=== PATIENT | female | born 1980 | race Caucasian/White ===

== ENCOUNTER 2016-12-23 15:05 | Observation (INO) | payer OTHER ==
[~2016-12-23] VITALS: Ht 172.7 cm; Wt 88.6 kg
[2016-12-23] VITALS (9 sets, daily range): BP systolic 108–134; BP diastolic 66–90; PULSE 80–133; RESP 12–20; O2SAT 94–100
[~2016-12-23 15:05] MED LIST: HYDR1TAB91 PO; MTC5T PO; NORE1TAB60 PO; fentaNYL-PF 50 mCg/mL 2 mL Inj ONE
[2016-12-23] MEDS ORDERED: HYDR25TA4 PO (15:21)
--- NOTE | 2016-12-23 15:33 | ED.REPORT ---
HPI-Abd Pain F Under 40 Date of Service Dec 23, 2016 ED Provider: Marek Lin MD The patient is an otherwise healthy 36 year old female who presents to the ED due to increasingly severe abdominal pain for the past two days. Pain radiates from her back into the front. Associated symptoms include back pain, decreased urination and nausea. She denies fever, dysuria. She has had urinary infections before. She has never had kidney stones before. Her father has a hx of kidney stones. Her PCP is [place]. She is not allergic to any medications. Nursing Notes Stated Complaint: RIGHT SIDE PAIN Chief Complaint: Female Abdominal Pain Nursing Notes Reviewed: Yes Allergies: Coded Allergies: clindamycin (Verified Allergy, Mild, 12/23/16) ulcers in mouth Scheduled PRN Hydrochlorothiazide (Hydrochlorothiazide) 25 Mg Tablet 25 MG PO DAILY PRN PRN exercise General Time Seen by MD: 15:33 Chief Complaint Abdominal pain Hx Obtained From: Patient Arrived By: Walk-in Onset Occurred: 2 days ago Symptom Duration: Since onset Progression since Onset: Gradually worsening Location: : Back Quality: Painful Radiation: : Abdomen lower: Abdomen upper Severity: Current: Moderate Recent Healthcare: No recent doctor visit, No recent hospitalization Similar Sx Previous: No Past Medical History Past Medical History denies Past Surgical History Reports: , Hysterectomy Smoking History Unknown if Ever Smoker Social History Other Social History: Ambulatory Status Independent Review of Systems Constitutional: Denies: Fever GI: Reports: Abdominal pain, Nausea Female: Reports: Flank pain, Urination decreased, Denies: Dysuria Musculoskeletal: Reports: Back pain Complete sys rev & neg: except as marked. Physical Exam Physical Exam Notes: Initial Vital Signs Vital Signs (First) Date Time Temp Pulse Resp B/P Pulse Ox O2 Delivery O2 Flow Rate FiO2 12/23/16 15:18 37.0 115 20 134/90 100 Room Air Initial VS: Reviewed Head / Eyes: Atraumatic, Normocephalic, PERRL Extremities: Vascular intact, Neuro intact, No swelling, No tenderness Skin: Warm, Dry, No cyanosis Psychiatric: Mood/affect normal, Behavior normal, Normal thought content General/Constitutional: Awake, Alert, Cooperative Respiratory / Chest: Atraumatic, Breath sounds NL, Breath sounds = bilat, No respiratory distress Cardiovascular: Heart rate NL, Regular rhythm, Heart sounds NL, No gallop, No murmurs, No rubs Abdomen: No guarding, No rebound light right sided abdominal tenderness Back: Full range of motion right CVA tenderness Interpretation & Diagnostics Lab Results Interpretation Result Diagram: 12/23/16 1530 12/23/16 1530 Test 12/23/16 15:30 12/23/16 16:00 12/23/16 16:40 White Blood Count 12.4th/mm3 (3.8-10.1) Red Blood Count 4.90mil/mm3 (3.90-5.20) Hemoglobin 14.9g/dL (12.0-15.6) Hematocrit 42.9% (35.0-46.0) Mean Corpuscular Volume 87.6fL (81-100) Mean Corpuscular Hemoglobin 30.4pg (27.0-35.0) Mean Corpuscular Hemoglobin Concent 34.7% (32.0-37.0) Red Cell Distribution Width 12.9% (12.3-15.4) Platelet Count 281bil/L (150-400) Neutrophils (%) (Auto) 78.2% (40-74) Lymphocytes (%) (Auto) 13.4% (14-46) Monocytes (%) (Auto) 7.2% (4-12) Eosinophils (%) (Auto) 0.8% (0-5) Basophils (%) (Auto) 0.2% (0-3) Sodium Level 136mEq/L (134-144) Potassium Level 3.0mEq/L (3.5-5.2) Chloride Level 96mEq/L (97-108) Carbon Dioxide Level 23mmol/L (18-29) Blood Urea Nitrogen 11mg/dL (6-20) Creatinine 0.63mg/dL (0.57-1.00) Estimat Glomerular Filtration Rate 155mL/min (>59) Glucose Level 113mg/dL (60-99) Calcium Level 9.8mg/dL (8.5-10.1) Total Bilirubin 0.3mg/dL (0.0-1.2) Aspartate Amino Transf (AST/SGOT) 17U/L (0-50) Alanine Aminotransferase (ALT/SGPT) 17U/L (0-32) Alkaline Phosphatase 49U/L (25-150) Total Protein 7.4g/dL (6.4-8.4) Albumin 4.6g/dL (3.4-5.0) Urine Color Yellow (YELLOW) Urine Appearance Slightly cloudy Urine pH 6.0 (5.0-8.0) Urine Specific Henriette 1.030 (1.003-1.035) Urine Protein 100mg/dL (NEG,TRACE) Urine Glucose (UA) Negativemg/dL (NEGATIVE) Urine Ketones Negativemg/dL (NEGATIVE) Urine Occult Blood Large (NEGATIVE) Urine Nitrite Negative (NEGATIVE) Urine Bilirubin Negative (NEGATIVE) Urine Urobilinogen Normalmg/dL (NORMAL) Urine Leukocyte Esterase Moderate (NEGATIVE) Urine RBC 3-10/hpf (0-2) Urine WBC 0-5/hpf (0-5) Urine Epithelial Cells None/hpf (NONE-MOD) Urine Crystals None seen (NONE SEEN) Urine Bacteria Few/hpf (NONE-FEW) Urine Hyaline Casts None/lpf (NONE) Urine Granular Casts None seen (NONE SEEN) Urine Waxy Casts None seen (NONE SEEN) Urine Red Blood Cell Casts None seen (NONE SEEN) Urine White Blood Cell Casts None seen (NONE SEEN) Urine Mucus None seen (None Seen) Urine Trichomonas None seen (NONE SEEN) Urine Yeast None (NONE SEEN) Urinalysis Comment None Urine Culture Reflexed Indicated Lactic Acid Level 1.0mmol/L (0.4-2.0) Lab Results Interpretation: urine dip neg CT Abd / Pelvis Interpretation IMPRESSION: 1. No renal stone or hydronephrosis. 2. Base to the appendix is enlarged 1 cm with small associated appendicolith suspicious for early manifestation of acute appendicitis. Please correlate with clinical findings. Dictated by: Jenny Leigh MD, PhD on 12/23/2016 at 17:41 Approved by: Jenny Leigh MD, PhD on 12/23/2016 at 17:46 Study type: Abdominal CT no contrast Interpretation / Wet Read by: Interpret - Radiologist Re-Eval/Medical Decision Re-Evaluation/Progress #1: Time of Eval: 17:14 Patient Status: Mild relief Re-Evaluation/Progress Note: Pt rechecked. She is still in pain. Plan for CT scan and oral potassium. Pt understands and agrees with plan. Re-Evaluation/Progress #2: Time of Eval: 18:31 Patient Status: Condition unchanged Re-Evaluation/Progress Note: Pt rechecked. CT scan does not show kidney stones but there is a possibiltiy for appendicitis. Plan to call a surgeon and have him come look at pt in the ED. Consultation : Referral / Consult Name: Pedro Cifuentes MD Consulted With: Surgeon Call Returned at: 19:29 Warehouse Director: Agrees with eval, Agrees with plan Note: Case discussed. Dr. Cifuentes accepts admission. Counseled Regarding: Diagnosis, Lab results, Need for admission Discharge & Departure Primary Impression: Appendicitis Appendicitis type: unspecified Qualified Code: K37 - Unspecified appendicitis Disposition: ADMITTED TO HOSPITAL Discharge Condition All VS Reviewed: Yes Condition: Stable Referrals: Ramo Tran MD (PCP) Scribe Attestation Portion of this note were transcribed by Mireya Nunez. I, Dr. Lin, personally performed the history, physical exam, and medical decision-making: I reviewed and confirmed the accuracy for the information in the transcribed note. Signed by: meme Chu, 12/23/16 1700 copies to: Ramo Tran MD, Donald L MD Dec 23, 2016 15:33 Mireya Nunez Dec 23, 2016 16:13
[2016-12-23] MEDS ORDERED: 0.9% Sodium Chloride 1,000 ML IV ONE (15:37)
[2016-12-23] MEDS ORDERED: Ketorolac 15 mg/mL Inj IV ONE (15:40)
[2016-12-23 15:51] LABS: BASOPHILS % (AUTO) 0.2 % (0-3); EOSINOPHILS % (AUTO) 0.8 % (0-5); MONOCYTES % (AUTO) 7.2 % (4-12); Mean Corpuscular Hemoglobin 30.4 pg (27.0-35.0); Mean Corpuscular Volume 87.6 fL (81-100); NEUTROPHILS % (AUTO) 78.2 % (40-74); Platelet Count 281 bil/L (150-400)
[2016-12-23] MEDS: Ondansetron 2 mg/mL 2 mL Inj IV PRN ×2 (15:57→18:13)
[2016-12-23] MEDS: HYDROmorphone 1 mg/mL Inj IVPUSH PRN ×2 (16:20→18:13)
[2016-12-23 16:23] LABS: APPEARANCE,URINE SLIGHTLY CLOUDY (CLEAR,HAZY); COLOR,URINE YELLOW (YELLOW); OCCULT BLOOD,URINE LARGE (NEGATIVE); UROBILINOGEN,URINE NORMAL (NORMAL)
[2016-12-23] MEDS ORDERED: Potassium Chloride 20 mEq/15 mL 15mL Oral Soln PO ONE (17:15)
--- NOTE | 2016-12-23 17:48 | DRSVH ---
PROCEDURE: CT KUB (PNL-7475) INDICATIONS: r flank pain and hematuria TECHNIQUE: Noncontrast 5 mm thick sections acquired from the diaphragms to the symphysis. 5 mm thick coronal an d sagittal reformats were then performed. For radiation dose reduction, the following was used: aut omated exposure control, adjustment of mA and/or kV according to patient size. COMPARISON: [facility] , CT, ABD/PELVIS W/CON (PNL), 08/24/2011, 13:58. [facility], CT, KUB - CT (ABD/PEL W/O CONT), 12/27/2010, 21:38. FINDINGS: Image quality: Excellent. Lung bases: Lung bases are clear. Heart size is normal. Urinary system: Both kidneys are normal in size. No kidney stones. No hydronephrosis or perinephri c fat stranding. Both ureters appear non-dilated throughout their expected courses. Bladder wall th ickness is normal; no calcified bladder stones. Other solid organs: Liver and spleen are normal in size. Gallbladder is within normal limits.. Barragan creas is normal in contours. No adrenal nodules. Peritoneum and bowel: Unenhanced bowel loops demonstrate normal wall thickness and caliber. No free fluid or air. Appendicolith is noted in the base of the appendix. Base of the appendix is enlarged measuring 1 cm in diameter. Minimal stranding noted adjacent to the base of the appendix. Nodes and vessels: No retroperitoneal or mesenteric adenopathy by size criteria. Aorta and inferior vena cava are normal in caliber. Abdominal wall: No ventral hernias. Pelvis: No free pelvic fluid. No inguinal hernias or adenopathy. Bones: No suspicious bony lesions. No vertebral body compression fractures. IMPRESSION: 1. No renal stone or hydronephrosis. 2. Base to the appendix is enlarged 1 cm with small associated appendicolith suspicious for early ma nifestation of acute appendicitis. Please correlate with clinical findings. Dictated by: Jenny Leigh MD, PhD on 12/23/2016 at 17:41 Approved by: Jenny Leigh MD, PhD on 12/23/2016 at 17:46
--- NOTE | 2016-12-23 19:45 | HP ---
[address] [address] HISTORY AND PHYSICAL PATIENT: ANA RODRIGUEZ : 1980 MR#: [id number] ADMIT: 12/23/2016 JOB ID: [id number] DATE OF SERVICE: 12/23/2016 CHIEF COMPLAINT/INDICATION: A 36-year-old female with probable appendicitis. HISTORY OF PRESENT ILLNESS: The patient developed progressive onset of right-sided abdominal pain since yesterday, worsening today such that she came to the emergency room where a CT KUB has demonstrated findings consistent with appendicitis. PAST MEDICAL HISTORY: Hysterectomy for uterine scarring and lower abdominal pain. MEDICATIONS: None. 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 SOCIAL HISTORY: , [id number] mom. Has six kids ranging from the age of 20 down to 2, the last few were adopted. Negative for tobacco, negative daily alcohol. FAMILY HISTORY: Noncontributory. REVIEW OF SYSTEMS: Negative. PHYSICAL EXAMINATION: VITAL SIGNS: Afebrile. Vital signs stable. GENERAL: She appears comfortable, though her pulse was as high as 115. HEENT: Her sclerae are clear. NECK: Supple. LUNGS: Clear. HEART: Heart sounds are regular. BREASTS: Not examined. ABDOMEN: She has mild right lower quadrant tenderness, scars consistent with surgical history. LABORATORY DATA: White count is 12.4, hematocrit 42.9. Chemistries are normal except for mildly low potassium of 3, glucose of 113. There is no lipase checked. Her urinalysis demonstrated large occult blood. CT KUB was obtained and I have reviewed the report and the films and I concur that she has an appendicolith, a 1 cm appendix, and some fat stranding around the base of the appendix. IMPRESSION/PLAN: Appendicitis. I have recommended laparoscopic appendectomy after discussion of risks, benefits, and possible complications, including possibility of negative exploration or needing to make a larger incision due to her previous surgery. She agrees to proceed. I will give her cefotetan in the perioperative period. We will move ahead tonight. She last ate at roughly 8:30 this morning.
[2016-12-23] MEDS ORDERED: Cefotetan Inj 2,000 MG in IV Premix 1 EACH IV ONE (20:00)
[2016-12-23] MEDS ORDERED: Lactated Ringer's 1,000 ML IV ONE (20:40)
[2016-12-23] MEDS ORDERED: Lactated Ringer's 500 ML IV PRN (20:51)
[2016-12-23] MEDS ORDERED: Lactated Ringer's 1,000 ML IV SCH ×2 (20:51→21:15)
[2016-12-23] MEDS ORDERED: Atropine 0.4 mg/mL Inj IVPUSH PRN (20:55)
[2016-12-23] MEDS ORDERED: hydrALAZINE 20 mg/mL Inj IVPUSH PRN (20:55)
[2016-12-23] MEDS ORDERED: fentaNYL-PF 50 mCg/mL 2 mL Inj IVPUSH PRN (20:55)
[2016-12-23] MEDS ORDERED: Phenylephrine 10,000 mCg/mL Inj IVPUSH PRN (20:55)
[2016-12-23] MEDS ORDERED: Ondansetron 2 mg/mL 2 mL Inj IVPUSH PRN ×2 (20:55→21:15)
[2016-12-23] MEDS ORDERED: Labetalol 5 mg/mL 4 mL Inj IV PRN (20:55)
[2016-12-23] MEDS ORDERED: HYDROmorphone 1 mg/mL Inj IVPUSH PRN (20:55)
[2016-12-23] MEDS ORDERED: MetoCLOpramide 5 mg/mL 2 mL Inj IVPUSH PRN (20:55)
[2016-12-23] MEDS ORDERED: EPHEDrine Sulfate 50 mg/mL Inj IVPUSH PRN (20:55)
[2016-12-23] MEDS ORDERED: Bupivacaine-MPF 0.5% W/EPI 30 mL Inj INFILTRATE ONE (20:56)
[2016-12-23] MEDS ORDERED: Polyethylene Glycol (PEG) 17 Gm Powder PO ONE (21:15)
[2016-12-23] MEDS ORDERED: diphenhydrAMINE 25 mg Capsule PO PRN (21:15)
[2016-12-23] MEDS: HYDROmorphone 0.5 mg/0.5 mL iSecure Syringe IV PRN ×2 (21:24→21:33)
--- NOTE | 2016-12-23 21:24 | NUR ---
Report given to Chloe Velasquez RN, room 1006.
--- NOTE | 2016-12-23 21:25 | PCM.ANEP1 ---
Post Anesthesia Phase 1 PACU Phase 1 Assessment Vital Signs Vital Signs Date Time Temp Pulse Resp B/P Pulse Ox O2 Delivery O2 Flow Rate FiO2 12/23/16 21:15 133 17 130/81 100 Simple Mask 8 12/23/16 21:10 36.7 127/78 12/23/16 18:12 90 18 128/86 100 Room Air 12/23/16 15:18 37.0 115 20 134/90 100 Room Air Anesthetic Administered: GA Level of Alertness: Awake, talking ESTEBAN's with Equal Strength: Yes Pain: No Pain Scale Score: 5 Nausea or Vomiting: No Oxygen Delivery: Room Air Lungs: Clear to Auscultation, Normal Air Movement Dermatome Level: Full Sensation Zack Lynch MD Dec 23, 2016 21:25
--- NOTE | 2016-12-23 21:25 | PCM.HPANE ---
Patient Data Surgeon Admitting Provider: Attending Provider: Primary Care Physician:Ramo Tran MD Other Provider: Reason for Visit Right Side Pain Ht/WT & BMI Height (Feet): 5 Height (Inches): 8 Weight (Kilograms): 88.64 Body Mass Index Allergies Coded Allergies: clindamycin (Verified Allergy, Mild, 12/23/16) ulcers in mouth Past Anesthesia History Anesthesia History: Denies:: Abnormal Airway, Anesthesia Reactions, Difficult Intubation Diabetes History Hx Diabetes?: No MRSA MRSA: No Medications Reported Medications Hydrochlorothiazide 25 Mg [id number] Mg PO DAILY PRN exercise Ref 0 12/23/16 Discontinued Reported Medications Noreth A-Et Estra/Fe Fumarate (Microgestin Fe 1.5 Tab)1 Tab Tablet1 Tab PO BID 05/02/11 Metoclopramide-Expunged Drug, Do Not Renew! (Reglan-Expunged Drug, Do Not Renew! )5 Mg Tablet5 Mg PO Q4 PRN 1-2 tablets every 4 hours as needed for nausea/vomiting 03/04/11 Hydrocod/APAP-Expunged, Do Not Renew! 1 Each Tablet1 Tab PO PRN 03/03/11 History History of ENT Problems?: No HEENT History: Denies:: Abnormal Airway Cataracts Difficult Intubation Dysphagia Hearing Problem Sinus Problem TMJ Hx of Heart Problems?: No Cardiovascular History: Denies:: Cardiac Surgery Chest Pain Congestive Heart Failure Edema Heart Murmur Hypertension Irregular Heartbeat Pacemaker Thrombophlebitis Hx of Respiratory Problem?: No Respiratory History: Denies:: Asthma COPD Chest Surgery Dyspnea Emphysema Hemoptysis Pneumonia Tuberculosis Hx Neurologic Problems?: Yes Neurological History: Positive for:: Headaches (Has one now. Hx Migraines.) Denies:: Alzheimer's Disease CVA Dementia Dizziness Parkinson's Disease Seizures Hx of GI Problems?: Yes Gastrointestinal History: Positive for:: Gastrointestinal Bleeding Denies:: Diverticulitis Gastroesphageal Reflux Heartburn Hepatitis Hiatal Hernia Rectal Bleeding Hx of Problems?: No Genitourinary History: Positive for:: Urinary Tract Infection Denies:: Kidney Stones Female Hx: Positive for:: Endometriosis Denies:: Currently Pelvic Inflammatory Problems with Breasts? Skin History: Denies:: History Skin Disorders? Pressure Ulcers Hx Musculoskeletal Problems?: Yes Musculoskeletal History: Denies:: Back Injury Joint Replacement Musculoskeletal Trauma Hx of Psycho/Social Problems?: No Psycho Social History: Denies:: Anxiety Bipolar Disorder Hx Depression Suicide Attempt Hx Surgeries?: Yes (Hysterectomy, x1) Hx Any Other Health Problems?: No Other History: Positive for:: Hospitalization Denies:: Cancer Endocrine Disease Thyroid Disease History Blood Transfusions: Denies:: Blood Transfusions Hx Diabetes: No Hx Alcohol Use: NoHx Substance Use: No Smoking Status: Unknown if Ever Smoker Have You Smoked inLast 12 mo: No Stop/Bang Risk Assessment Category Category 1A: Patient has history of documented sleep apnea, and HAS NOT received any narcotic, sedative or anesthesia administration during this stay. Category 1B: Patient has history of documented sleep apnea, and HAS received any narcotic , sedative or anesthesia administration during this stay Category 2: Patient has SUSPECTED Obstructive Sleep Apnea, and HAS received any narcotic , sedative or anesthesia administration during this stay. Category 3: Patient has SUSPECTED Obstructive Sleep Apnea and HAS NOT received narcotic, sedative or anesthesia administration during this stay. Category 4: Outpatient in Procedural Areas with known sleep apnea or who screen positive for High Risk via the STOP/BANG questionnaire. Exam Exam Vital Signs Vital Signs Date Time Temp Pulse Resp B/P Pulse Ox O2 Delivery O2 Flow Rate FiO2 12/23/16 18:12 90 18 128/86 100 Room Air 12/23/16 15:18 37.0 115 20 134/90 100 Room Air General Appearance: Alert, Oriented X3, Cooperative, Moderate Distress (right abdominal pain) HEENT/AIRWAY: MP 2 Lungs: Clear to Auscultation, Normal Air Movement Heart: Exam Unremarkable, Regular Rate/Rhythm, No Murmurs/Rubs/Gallops Meds/Labs/Diagnostics Admission Meds Current Medications Sodium Chloride (Normal Saline) 1,000 ml @ 0 mls/hr Q0M ONCE IV Last administered on 12/23/16 15:57; Start 12/23/16 at 15:37; Stop 12/23/16 at 15:38 ; Status DC Potassium Chloride (Potassium Chloride Oral Soln) 40 meq NOW ONCE PO Last administered on 12/23/16 17:26; Start 12/23/16 at 17:15; Stop 12/23/16 at 17:16 ; Status DC Labs Test 12/23/16 15:30 12/23/16 16:00 12/23/16 16:40 White Blood Count 12.4th/mm3 (3.8-10.1) Red Blood Count 4.90mil/mm3 (3.90-5.20) Hemoglobin 14.9g/dL (12.0-15.6) Hematocrit 42.9% (35.0-46.0) Mean Corpuscular Volume 87.6fL (81-100) Mean Corpuscular Hemoglobin 30.4pg (27.0-35.0) Mean Corpuscular Hemoglobin Concent 34.7% (32.0-37.0) Red Cell Distribution Width 12.9% (12.3-15.4) Platelet Count 281bil/L (150-400) Neutrophils (%) (Auto) 78.2% (40-74) Lymphocytes (%) (Auto) 13.4% (14-46) Monocytes (%) (Auto) 7.2% (4-12) Eosinophils (%) (Auto) 0.8% (0-5) Basophils (%) (Auto) 0.2% (0-3) Sodium Level 136mEq/L (134-144) Potassium Level 3.0mEq/L (3.5-5.2) Chloride Level 96mEq/L (97-108) Carbon Dioxide Level 23mmol/L (18-29) Blood Urea Nitrogen 11mg/dL (6-20) Creatinine 0.63mg/dL (0.57-1.00) Estimat Glomerular Filtration Rate 155mL/min (>59) Glucose Level 113mg/dL (60-99) Calcium Level 9.8mg/dL (8.5-10.1) Total Bilirubin 0.3mg/dL (0.0-1.2) Aspartate Amino Transf (AST/SGOT) 17U/L (0-50) Alanine Aminotransferase (ALT/SGPT) 17U/L (0-32) Alkaline Phosphatase 49U/L (25-150) Total Protein 7.4g/dL (6.4-8.4) Albumin 4.6g/dL (3.4-5.0) Urine Color Yellow (YELLOW) Urine Appearance Slightly cloudy Urine pH 6.0 (5.0-8.0) Urine Specific Milo 1.030 (1.003-1.035) Urine Protein 100mg/dL (NEG,TRACE) Urine Glucose (UA) Negativemg/dL (NEGATIVE) Urine Ketones Negativemg/dL (NEGATIVE) Urine Occult Blood Large (NEGATIVE) Urine Nitrite Negative (NEGATIVE) Urine Bilirubin Negative (NEGATIVE) Urine Urobilinogen Normalmg/dL (NORMAL) Urine Leukocyte Esterase Moderate (NEGATIVE) Urine RBC 3-10/hpf (0-2) Urine WBC 0-5/hpf (0-5) Urine Epithelial Cells None/hpf (NONE-MOD) Urine Crystals None seen (NONE SEEN) Urine Bacteria Few/hpf (NONE-FEW) Urine Hyaline Casts None/lpf (NONE) Urine Granular Casts None seen (NONE SEEN) Urine Waxy Casts None seen (NONE SEEN) Urine Red Blood Cell Casts None seen (NONE SEEN) Urine White Blood Cell Casts None seen (NONE SEEN) Urine Mucus None seen (None Seen) Urine Trichomonas None seen (NONE SEEN) Urine Yeast None (NONE SEEN) Urinalysis Comment None Urine Culture Reflexed Indicated Lactic Acid Level 1.0mmol/L (0.4-2.0) Plan Impression Patient chart reviewed, patient interviewed and anesthestic plan with risks, benefits, and alternatives discussed, and informed consent obtained. NPO Status: > 8 hrs ASA Physical Status: ASA2 Plus Emergency Anesthetic Plan: GA Bene/Risks/Altern/Consents: Yes HP Complete Prior to Induction: Yes Zack Lynch MD Dec 23, 2016 19:59
--- NOTE | 2016-12-23 21:25 | PCM.ANEP2 ---
Post Anesthesia Evaluation ASA/CMS Post Anesthesia VS in Patient's Normal Range?: Yes Resp Stable; Airway Patent?: Yes CV Function & Hydration Stable: Yes Mental Status Recovered?: Yes Pain control Satisfactory?: Yes N/V Control Satisfactory?: Yes Zack Lynch MD Dec 23, 2016 21:25
--- NOTE | 2016-12-23 22:15 | NUR ---
Arrival on unit Pt arrive at [facility] at 2200. Oriented to room and call light, significant other in room. PRN given for pain and zofran for nausea prevention. Pt alert and oriented x3, able to make needs known. Lap sites CDI. Care continues
--- NOTE | 2016-12-24 00:37 | OP ---
[address] [address] OPERATIVE REPORT PATIENT: ANA RODRIGUEZ : 1980 MR#: [id number] ADMIT: 12/23/2016 JOB ID: [id number] DATE OF SURGERY: 12/23/2016 PREOPERATIVE DIAGNOSIS(ES): Appendicitis. POSTOPERATIVE DIAGNOSIS(ES): Appendicitis. PROCEDURE: Laparoscopic appendectomy. SURGEON: Pedro Cifuentes MD INDICATIONS: A 36-year-old female with signs and symptoms consistent with appendicitis. FINDINGS: Acute nonperforated appendicitis. DESCRIPTION OF PROCEDURE: The patient was brought to the operating room. General anesthetic was administered. SCOAP protocol was followed. She received perioperative cefotetan. Surgical time-out was performed. We began with a Veress needle by the umbilicus. The abdomen was insufflated. We placed an optical trocar and then two additional trocars. The patient was tilted head-down and to the left. There was no free fluid in the abdomen. We exposed the appendix that was thickened with serosal injection, with a very hard appendicolith in the proximal 3rd causing obstruction. We mobilized the appendix, thinned out the mesoappendix with cautery and then used a single firing of the 45 stapler to divide the appendix at its base along with the mesoappendix. Specimen was removed in a bag to avoid wound contamination. We inspected the staple line. Hemostasis was good. We suctioned out the small amount of bleeding that had occurred and irrigated appropriately. We suctioned out all of our irrigation, checked the staple line again for hemostasis and adequacy and then took a quick survey of the abdomen, seeing no other significant inflammation. We removed all ports, let our CO2 out, and closed the wounds with absorbable suture. The patient tolerated the procedure well. At the time of dictation, she is in the recovery room.
[2016-12-24 01:55] VITALS: BP 105/58; PULSE 84; RESP 20; O2SAT 95
[2016-12-24 06:15] VITALS: BP 97/58; PULSE 58; RESP 16; O2SAT 98
[2016-12-24 08:15] VITALS: PULSE 64; RESP 15; O2SAT 98
[2016-12-24 09:10] VITALS: BP 105/64; PULSE 68; RESP 16; O2SAT 99
[2016-12-24] MEDS ORDERED: OXYC5TAB72 PO (09:14)
--- NOTE | 2016-12-24 09:15 | PCM.DISURG ---
Surgical Discharge Instruction Date of Service Dec 24, 2016 Dates of Hospitalization Date of Hospital Admission Dec 23, 2016 at 20:12 Providers Admitting Physician: Pedro Cifunetes MD Primary Care Physician: Ramo Tran MD Attending Physician: Pedro Cifuentes MD Diet Discharge Diet: No restrictions Activity Discharge Activity-General: No restrictions Dressing and Incisional Care Dressing Care: Allow Steri Stripes to fall off, Remove outer dressing after 24 hrs Hygiene: May shower Follow Up Plan Follow Up Plan 2-3 weeks with [facility] General Surgery clinic for pathology review and wound check Pedro Cifuentes MD Dec 24, 2016 09:15
--- NOTE | 2016-12-24 10:07 | NUR ---
Social Work- Brief Note/Readiness for Discharge Data: EMR Reviewed. Pt is a 36 year old female admitted 12/23/16 for appy per H&P. Pt's insurance is [employer]. Pt's PCP is Ramo Tran MD. SW spoke with pt regarding discharge plan, SW role explained. Pt alert and oriented x3. Pt resides in [place] with her and children where she remains independent with her ADLs. Pt uses no DME and drives. Pt has no DPOA, encouraged pt to complete this and bring it to the hospital. SW left phone number and plan on the board. Pt to discharge home with to transport via POV. No anticipated discharge needs. SW will continue to follow. Assessment: Pt who is independent at base. Plan: Pt to discharge home with to transport via POV. No anticipated discharge needs. SW will continue to follow. MARIA ELENA Benitez
--- NOTE | 2016-12-24 10:39 | NUR ---
Discharge To home with at 10:35 via private vehicle. IV discontinued intact. Pt and express understanding of all discharge instructions and care notes. Steady ambulation to door, declines wheelchair. All belongings sent with pt.
--- NOTE | 2016-12-24 10:51 | NUR ---
Social Work- Discharge Data: EMR Reviewed. Pt is a 36 year old female admitted 12/23/16 for appy per H&P. Pt to discharge today. Pt is independent at base. Per RN, pt is ambulating in room. Pt to discharge home with to transport via POV. No discharge needs. Assessment: Pt who is independent at base. Plan: Pt to discharge home with to transport via POV. No discharge needs. MARIA ELENA Benitez
--- NOTE | 2016-12-24 16:02 | PROG NOTE ---
[address] [address] PROGRESS NOTE PATIENT: ANA RODRIGUEZ : 1980 MR#: [id number] ADMIT: 12/23/2016 JOB ID: [id number] DATE: 12/24/2016 Postop day one laparoscopic appendectomy. She is afebrile, taking p.o. well, her incisions are in good shape. I did not recheck her labs. She will go home today.
--- NOTE | 2016-12-24 19:00 | DIS ---
[address] [address] DISCHARGE SUMMARY PATIENT: ANA RODRIGUEZ : 1980 MR#: [id number] ADMIT: 12/23/2016 JOB ID: [id number] DIS: 12/24/2016 DISCHARGE DIAGNOSIS: Appendicitis. OPERATIONS AND PROCEDURES: Laparoscopic appendectomy. HOSPITAL COURSE: A 36-year-old female admitted with appendicitis. She underwent surgery and did well, was discharged on postop day number one. She went home with oxycodone 5 mg p.o. q.4 h. p.r.n. #10 and will follow up in 2-3 weeks with the [facility].
--- NOTE | 2016-12-27 11:01 | PATH ---
SURGICAL PATHOLOGY Attending Physician:Pedro Cifuentes MD CASE STATUS: Signed Out PATIENT NAME: ANA RODRIGUEZ PID: [id number] : 1980 DATE COLLECTED:12/23/2016 00:00 SPECIMEN: Appendix CLINICAL HISTORY: 1). APPENDIX FINAL DIAGNOSIS: 1.APPENDIX: ACUTE APPENDICITIS. ICD10 CODE K35.80 GROSS DESCRIPTION: The specimen is received in one formalin filled container labeled with the patient's name, sublabeled "appendix" is one cylindrical argueta appendix measuring 5.5 x 1.3 x 1.3 CM. The serosal surface is light ybarra-argueta, smooth and glistening. There is a large amount of attached fatty tissue. Sectioning reveals the wall to be thickened to 0.3-0.4 CM. The lumen contains a light grover slightly friable material. Rn Interventional sections are submitted in one cassette. 12/25/2016 DAC MICRO DESCRIPTION: See diagnosis. ICD-9 CODES: CPT CODES: 1: 27504 Electronically Signed Out Marek Davis MD [facility] Pathology [facility] [address], [place] [address] Technical component performed at [facility], [address] [place] [address] Ave[address], [place], [address]
== END 2016-12-24 10:38 | disposition home or self-care (01) ==
LOC: SED 15:05 → OSC 20:09
PROVIDERS: ADMIT Surgery; ATTEND Surgery
DX: K35.80 Unspecified acute appendicitis (principal); Z90.710 Acquired absence of both cervix and uterus
CPT/HCPCS: 36415; 44970; 74176; 80053; 81000; 81025; 83605; 85025; 87086; 94640; 96361; 96374; 96375; 96376; 99285; G0378; J1170; J2175; J2405; J3010; J7030; J7120

== ENCOUNTER 2017-01-01 18:33 | Emergency (ER) | payer OTHER ==
[~2017-01-01] VITALS: Ht 172.7 cm; Wt 89.1 kg
[~2017-01-01 18:33] MED LIST changes: -HYDR1TAB91 PO; +HYDR25TA4 PO; -MTC5T PO; -NORE1TAB60 PO; +OXYC5TAB72 PO; -fentaNYL-PF 50 mCg/mL 2 mL Inj ONE
[2017-01-01 18:35] VITALS: BP 120/85; PULSE 94; RESP 20; O2SAT 98
[2017-01-01 19:21] LABS: BASOPHILS % (AUTO) 0.4 % (0-3); EOSINOPHILS % (AUTO) 1.4 % (0-5); MONOCYTES % (AUTO) 7.6 % (4-12); Mean Corpuscular Hemoglobin 30.3 pg (27.0-35.0); Mean Corpuscular Volume 87.6 fL (81-100); NEUTROPHILS % (AUTO) 65.2 % (40-74); Platelet Count 300 bil/L (150-400)
[2017-01-01 19:46] LABS: Magnesium 2.1 mg/dL (1.6-2.6)
--- NOTE | 2017-01-01 19:58 | ED.REPORT ---
HPI-General Illness Date of Service Jan 01, 2017 ED Provider: Marline Victor MD A 36 year old female one week post laparoscopic appendectomy presents to ED from complaining of RUQ pain/right lower lung pain that feels like it is located right under her ribs. does not feel like the current pain is related to the incisions from that surgery. She reports that she cannot take a full breathe in or breathe out due to pain. She denies any stomach pain, diarrhea, or swelling in feet and ankles. Normal bowel movements and has begun to resume normal activities such as walking. She reports adverse reactions to pain medications, reporting that Oxycontin causes nausea. Nursing Notes Stated Complaint: RIGHT SIDE CHEST PAIN, DIFFICULTY BREATHING Chief Complaint: Female Abdominal Pain Nursing Notes Reviewed: Yes Allergies: Coded Allergies: clindamycin (Verified Allergy, Mild, 12/23/16) ulcers in mouth morphine (Verified Adverse Reaction, Unknown, Rash,Itching,, 01/01/17) Scheduled PRN Hydrochlorothiazide (Hydrochlorothiazide) 25 Mg Tablet 25 MG PO DAILY PRN PRN exercise oxyCODONE (oxyCODONE) 5 Mg Tablet 5 MG PO Q4H PRN PRN For Moderate Pain General Time Seen by MD: 19:41 Chief Complaint Other (RUQ pain) Hx Obtained From: Patient, Spouse Arrived By: Walk-in Sudden in Onset?: No Onset Occurred: Onset unknown Symptom Duration: Since onset Location: : Abdomen (RUQ) Severity: Current: Moderate Severity: Maximum: Severe Recent Healthcare: Recent doctor visit Similar Sx Previous: No Past Medical History Past Medical History gastrointestinal bleed. endometriosis. 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 Chronic lower extremity edema Past Surgical History Reports: Appendectomy, , Hysterectomy Smoking History Unknown if Ever Smoker Social History Other Social History: Ambulatory Status Independent Review of Systems RUQ pain that seems to be right under ribs. Difficulty taking full breathes. Denies stomach pain. Full Review of Systems GI: Denies: Diarrhea Musculoskeletal: Denies: Extremity swelling (denies swelling in feet or ankles. ) Complete sys rev & neg: except as marked. Physical Exam Vital Signs Vital Signs Date Time Temp Pulse Resp B/P Pulse Ox O2 Delivery O2 Flow Rate FiO2 01/01/17 23:31 36.7 68 16 110/64 97 Room Air 01/01/17 18:35 36.4 94 20 120/85 98 Room Air Initial VS: Reviewed General/Constitutional: Awake, Alert Head / Eyes: Atraumatic, Normocephalic, PERRL, EOMI ENT: Atraumatic, Mucous membranes moist Neck: Atraumatic, No swelling Respiratory / Chest: Atraumatic, Breath sounds NL, Breath sounds = bilat, No respiratory distress Cardiovascular: Heart rate NL, Regular rhythm, Heart sounds NL, No gallop, No murmurs, No rubs Abdomen: No guarding, No rebound RUQ pain without rebound or guarding. Good bowel tones. Incision from laproscopic appendectomy is healing nicely. Back: Atraumatic Upper Extremities Upper Extremity / MS: No swelling, No edema Lower Extremity / Pelvis / MS: No swelling, No edema Ankle / Foot: No swelling, No edema Skin: Atraumatic, Warm, Dry Neurologic: Oriented X3, Speech NL Interpretation & Diagnostics Lab Results Interpretation Result Diagram: 01/01/17191001/01/171910 Test 01/01/17 19:11 White Blood Count 7.9th/mm3 (3.8-10.1) Red Blood Count 4.66mil/mm3 (3.90-5.20) Hemoglobin 14.1g/dL (12.0-15.6) Hematocrit 40.8% (35.0-46.0) Mean Corpuscular Volume 87.6fL (81-100) Mean Corpuscular Hemoglobin 30.3pg (27.0-35.0) Mean Corpuscular Hemoglobin Concent 34.6% (32.0-37.0) Red Cell Distribution Width 12.7% (12.3-15.4) Platelet Count 300bil/L (150-400) Neutrophils (%) (Auto) 65.2% (40-74) Lymphocytes (%) (Auto) 25.3% (14-46) Monocytes (%) (Auto) 7.6% (4-12) Eosinophils (%) (Auto) 1.4% (0-5) Basophils (%) (Auto) 0.4% (0-3) Sodium Level 137mEq/L (134-144) Potassium Level 3.2mEq/L (3.5-5.2) Chloride Level 101mEq/L (97-108) Carbon Dioxide Level 18mmol/L (18-29) Blood Urea Nitrogen 7mg/dL (6-20) Creatinine 0.52mg/dL (0.57-1.00) Estimat Glomerular Filtration Rate 193mL/min (>59) Glucose Level 103mg/dL (60-99) Calcium Level 9.6mg/dL (8.5-10.1) Magnesium Level 2.1mg/dL (1.6-2.6) Total Bilirubin 0.2mg/dL (0.0-1.2) Aspartate Amino Transf (AST/SGOT) 15U/L (0-50) Alanine Aminotransferase (ALT/SGPT) 12U/L (0-32) Alkaline Phosphatase 45U/L (25-150) Total Protein 7.2g/dL (6.4-8.4) Albumin 4.0g/dL (3.4-5.0) Lipase 29U/L (13-60) Hold Conklin Top Tube Received (Received) ECG Interpretation ECG Interpretation: Rate is 79. Sinus rhythm. Time: 19:23 Interpreted by: ED physician X-Ray Chest Interpretation Chest Xray Interpretation: IMPRESSION: No acute pulmonary process. Dictated by: Unique Saba M.D. on 01/01/2017 at 20:38 Approved by: Unique Saba M.D. on 01/01/2017 at 20:39 Interpretation / Wet Read by: Interpret - Radiologist Re-Eval/Medical Decision Time of Eval: 22:26 Patient Status: Condition improved (Toradol was quite helpful with controlling pain) Re-Evaluation/Progress Note: Rechecked patient, explained test results, diagnosis, and plan for discharge. Patient understands and agrees with the plan. Counseled Regarding: Diagnosis, Lab results, Need for follow-up, When/why to return to ED Discharge & Departure Primary Impression: Pleuritic chest pain Disposition: Home Discharge Condition All VS Reviewed: Yes Condition: Improved Additional Instructions: Your labs and chest XRay look normal. Your abdomen looks normal, there is no infection and nothing is wrong with your Gallbladder. It is possible that you have irritation under your diaphragm after your surgery. It may be a bit of inflammation around your lung. In either case, you are going to get better no matter what. Your diagnosis is Pleuritic chest pain, which means that the pain is concentrated somewhere around your diaphragm. You can take ibuprofen for pain relief. Keep walking and moving, this will continue to help with your recovery. Whether or not to run in your upcoming [employer] race is up to you. Running that race may cause additional problems. I recommend looking at at later race ( [employer] whole and half is a beautiful race). It is ok to give yourself time to heal. I wish you the best. Referrals: Ramo Tran MD (PCP) Melyssa Attestation Portions of this note were transcribed by Jose Alberto Parish. I, Dr. Victor personally performed the history, physical exam and medical decision-making; I reviewed and confirmed the accuracy of the information in the transcribed note. Signed by: Melyssa Yao, 01/01/2017 2057. copies to: Ramo Tran MD, Shawna L MD Jan 01, 2017 19:58 Jose Alberto Parish Jan 01, 2017 21:25 Signed by: Melyssa Yao, 01/01/2017 [id number]. copies to: Ramo Tran MD, Shawna L MD Jan 01, 2017 19:58 Jose Alberto Parish Jan 01, 2017 21:25
--- NOTE | 2017-01-01 20:40 | DRSVH ---
PROCEDURE: X-RAY CHEST, TWO VIEWS ([id number]) INDICATIONS: RUGHT UPPER QUADRANT pain, post op appy 1 week ago TECHNIQUE: 2 views of the chest were acquired. COMPARISON: None. FINDINGS: Surgical changes and devices: None. Lungs and pleura: No pleural effusions or pneumothorax. Lungs are clear. Mediastinum: Mediastinal contours are normal. Heart size is normal. Bones and chest wall: No suspicious bony abnormalities. Soft tissues appear unremarkable. IMPRESSION: No acute pulmonary process. Dictated by: Unique Saba M.D. on 01/01/2017 at 20:38 Approved by: Unique Saba M.D. on 01/01/2017 at 20:39
[2017-01-01 23:31] VITALS: BP 110/64; PULSE 68; RESP 16; O2SAT 97
== END 2017-01-01 23:32 | disposition home or self-care (01) ==
LOC: SED 18:33
DX: R07.81 Pleurodynia (principal); Z88.1 Allergy status to other antibiotic agents; Z88.5 Allergy status to narcotic agent